=== PATIENT | male | born 1935 | race Caucasian/White ===

== ENCOUNTER 2017-03-18 18:42 | Inpatient (IN) | payer MEDICARE, OTHER ==
[~2017-03-18] VITALS: Ht 167.6 cm; Wt 81.6 kg
[~2017-03-18 18:42] MED LIST: ADOVART PO; ARFO15VI2 NEB; DONE5TAB33 PO; LEVO125T8 PO; LEVO25TA7 PO; TAMS-11 PO
[2017-03-18 19:30] VITALS: BP 115/46
[2017-03-18 20:34] VITALS: BP 115/46
[2017-03-18] MEDS: FUROSEMIDE 40MG/4ML VIAL IVP SCH (21:30)
[2017-03-18 21:38] LABS: BASOPHILS % 0.6 % (0.0-2.0); EOSINOPHILS % 1.4 % (0.0-5.0); HEMATOCRIT. 32.6 % (42.0-52.0); HEMOGLOBIN. 10.9 g/dL (14.0-18.0); LYMPHOCYTES % 11.2 % (20.0-50.0); MEAN CORPUSCULAR HEMOGLOBIN 33.5 pg (28.0-32.0); MEAN CORPUSCULAR VOLUME 100.2 fL (80.0-94.0); MONOCYTES % 13.2 % (2.0-8.0); NEUTROPHILS % 73.6 % (40.0-76.0); PLATELET 106 x1000/uL (130-400); RED BLOOD CELL COUNT 3.25 mill/uL (4.7-6.1); RED CELL DISTRIBUTION WIDTH 14.7 % (11.6-14.6)
[2017-03-18 21:40] LABS: CARBON DIOXIDE 37 mEq/L (21-32); CHLORIDE 102 mEq/L (98-107)
[2017-03-18] MEDS ORDERED: APIX2.5T PO (21:58)
[2017-03-18] MEDS ORDERED: POTA-9 PO (21:58)
[2017-03-18] MEDS ORDERED: CARV6.2548 PO (21:58)
[2017-03-18] MEDS ORDERED: FURO-151 PO (21:58)
[2017-03-18] MEDS ORDERED: SACU1TAB7 PO (22:25)
[2017-03-18] MEDS ORDERED: SACUBITRIL PO SCH (22:30)
[2017-03-18] MEDS ORDERED: VALSARTAN PO SCH (22:30)
[2017-03-18] MEDS ORDERED: [UNRECOGNIZED DRUG - OTHER] PO SCH (22:30)
[2017-03-18] MEDS ORDERED: APIXABAN 2.5 MG TABLET PO SCH (22:35)
[2017-03-19] VITALS (7 sets, daily range): BP systolic 98–166; BP diastolic 52–61
[2017-03-19] MEDS ORDERED: METOLAZONE 10MG TABLET PO NR (08:15)
[2017-03-19] MEDS: IPRATROPIUM/ALBUTEROL 0.5-3(2.5)MG/3ML NEB HHN SCH ×5 (08:59→21:10)
[2017-03-19] MEDS ORDERED: CARVEDILOL 6.25 MG TABLET PO SCH (09:00)
[2017-03-19] MEDS ORDERED: APIXABAN 2.5 MG TABLET PO SCH (09:00)
[2017-03-19 09:42] LABS: BASOPHILS % 0.8 % (0.0-2.0); EOSINOPHILS % 1.2 % (0.0-5.0); HEMATOCRIT. 32.5 % (42.0-52.0); HEMOGLOBIN. 10.5 g/dL (14.0-18.0); LYMPHOCYTES % 10.2 % (20.0-50.0); MEAN CORPUSCULAR VOLUME 99.3 fL (80.0-94.0); MEAN PLATELET VOLUME 8.5 fl (7.4-10.4); MONOCYTES % 13.1 % (2.0-8.0); NEUTROPHILS % 74.7 % (40.0-76.0); PLATELET 107 x1000/uL (130-400); RED BLOOD CELL COUNT 3.27 mill/uL (4.7-6.1); RED CELL DISTRIBUTION WIDTH 14.5 % (11.6-14.6)
[2017-03-19 10:06] LABS: INR 1.4; PROTHROMBIN TIME 14.4 sec (9.4-11.6)
[2017-03-19 10:41] LABS: CARBON DIOXIDE 38 mEq/L (21-32); CHLORIDE 98 mEq/L (98-107); HDL CHOLESTEROL 31 mg/dL (40-59); LDL CHOLESTEROL 49 mg/dL (5-100); PHOSPHORUS 3.4 mg/dL (2.5-4.9); TOTAL IRON BINDING CAPACITY 252 ug/dL (250-450)
[2017-03-19 10:54] LABS: VITAMIN B12 SERUM 589 pg/mL (211-911)
[2017-03-19] MEDS: DONEPEZIL HCL 10MG TABLET PO SCH (11:56)
[2017-03-19] MEDS: DUTASTERIDE 0.5MG CAPSULE PO SCH (11:56)
[2017-03-19] MEDS: LEVOTHYROXINE SODIUM 88MCG TABLET PO SCH (11:56)
[2017-03-19] MEDS: TAMSULOSIN HCL 0.4MG SR CAPSULE PO SCH ×2 (11:58→17:58)
[2017-03-19] MEDS: FUROSEMIDE 40MG/4ML VIAL IVP SCH ×2 (11:58→20:52)
[2017-03-19] MEDS: ENTRESTO PO SCH ×2 (11:58→20:52)
[2017-03-19] MEDS: CARVEDILOL 3.125 MG TABLET PO SCH (20:52)
[2017-03-20] MEDS: CARVEDILOL 3.125 MG TABLET PO SCH ×3 (00:06→20:59)
[2017-03-20 00:57] LABS: CLARITY URINE CLEAR (CLEAR); COLOR URINE YELLOW (YELLOW); GLUCOSE URINE NEGATIVE (NEGATIVE); KETONES URINE NEGATIVE (NEGATIVE); LEUKOCYTE ESTERASE URINE NEGATIVE (NEGATIVE); NITRITE URINE NEGATIVE (NEGATIVE); OCCULT BLOOD URINE NEGATIVE (NEGATIVE); PH URINE 5.5 (4.5-8.0); PROTEIN URINE NEGATIVE (NEGATIVE); SPECIFIC GRAVITY URINE 1.011 (1.005-1.030); UROBILINOGEN URINE 0.2 E.U./dL (0.2-1.0)
[2017-03-20 04:00] VITALS: BP 104/58
[2017-03-20 08:00] VITALS: BP 113/48
[2017-03-20] MEDS: IPRATROPIUM/ALBUTEROL 0.5-3(2.5)MG/3ML NEB HHN SCH ×2 (08:14→20:44)
[2017-03-20] MEDS: TAMSULOSIN HCL 0.4MG SR CAPSULE PO SCH ×2 (08:59→18:16)
[2017-03-20] MEDS: LEVOTHYROXINE SODIUM 88MCG TABLET PO SCH (08:59)
[2017-03-20] MEDS: DONEPEZIL HCL 10MG TABLET PO SCH (08:59)
[2017-03-20] MEDS: DUTASTERIDE 0.5MG CAPSULE PO SCH (08:59)
[2017-03-20] MEDS: FUROSEMIDE 40MG/4ML VIAL IVP SCH ×2 (09:00→20:59)
[2017-03-20] MEDS: ENTRESTO PO SCH ×2 (09:00→20:59)
[2017-03-20 09:16] LABS: BASOPHILS % 0.9 % (0.0-2.0); EOSINOPHILS % 3.1 % (0.0-5.0); HEMATOCRIT. 30.8 % (42.0-52.0); HEMOGLOBIN. 10.3 g/dL (14.0-18.0); LYMPHOCYTES % 12.4 % (20.0-50.0); MEAN CORPUSCULAR HEMOGLOBIN 33.1 pg (28.0-32.0); MEAN PLATELET VOLUME 9.3 fl (7.4-10.4); MONOCYTES % 13.5 % (2.0-8.0); NEUTROPHILS % 70.1 % (40.0-76.0); PLATELET 93 x1000/uL (130-400); RED BLOOD CELL COUNT 3.11 mill/uL (4.7-6.1); RED CELL DISTRIBUTION WIDTH 14.4 % (11.6-14.6)
[2017-03-20 09:49] LABS: CARBON DIOXIDE 38 mEq/L (21-32); CHLORIDE 97 mEq/L (98-107); TROPONIN I 0.08 ng/mL (0.00-0.04)
[2017-03-20] MEDS ORDERED: SODIUM BICARBONATE 4% (2.4MEQ) 5ML VIAL IV ONE (10:48)
[2017-03-20 12:00] VITALS: BP 108/43
[2017-03-20 16:00] VITALS: BP 94/40
[2017-03-20 20:00] VITALS: BP 107/49
[2017-03-21] VITALS: BP 95/47
[2017-03-21 04:00] VITALS: BP 104/71
[2017-03-21 06:56] LABS: CHLORIDE 96 mEq/L (98-107)
[2017-03-21 07:30] LABS: BASOPHILS % 0.9 % (0.0-2.0); HEMOGLOBIN. 10.6 g/dL (14.0-18.0); MEAN CORPUSCULAR HEMOGLOBIN 33.7 pg (28.0-32.0); MEAN CORPUSCULAR VOLUME 98.7 fL (80.0-94.0); MEAN PLATELET VOLUME 9.4 fl (7.4-10.4); MONOCYTES % 13.7 % (2.0-8.0); NEUTROPHILS % 68.4 % (40.0-76.0); PLATELET 98 x1000/uL (130-400); RED BLOOD CELL COUNT 3.14 mill/uL (4.7-6.1)
[2017-03-21 07:57] LABS: CARBON DIOXIDE 40 mEq/L (21-32)
[2017-03-21] MEDS: DONEPEZIL HCL 10MG TABLET PO SCH (08:25)
[2017-03-21] MEDS: CARVEDILOL 3.125 MG TABLET PO SCH (08:27)
[2017-03-21] MEDS: DUTASTERIDE 0.5MG CAPSULE PO SCH (08:28)
[2017-03-21] MEDS: LEVOTHYROXINE SODIUM 88MCG TABLET PO SCH (08:28)
[2017-03-21] MEDS: FUROSEMIDE 40MG/4ML VIAL IVP SCH (08:30)
[2017-03-21] MEDS: TAMSULOSIN HCL 0.4MG SR CAPSULE PO SCH (08:30)
[2017-03-21] MEDS: ENTRESTO PO SCH (08:30)
[2017-03-21] MEDS: IPRATROPIUM/ALBUTEROL 0.5-3(2.5)MG/3ML NEB HHN SCH ×2 (10:03→13:09)
[2017-03-21 12:00] VITALS: BP 118/85
[2017-03-21 13:58] VITALS: BP 112/42
[2017-03-21 14:00] VITALS: BP 112/42
== END 2017-03-21 14:34 | disposition home or self-care (01) | DRG 291 ==
LOC: 7WST 18:42
PROVIDERS: ADMIT Internal Medicine Geriatric Medicine; ATTEND Internal Medicine Geriatric Medicine
PROC: 0W9G3ZZ Drainage of Peritoneal Cavity, Percutaneous Approach (ICD-10-PCS; principal; 2017-03-20)
DX: I11.0 Hypertensive heart disease with heart failure (principal); J96.20 Acute and chronic respiratory failure, unspecified whether with hypoxia or hypercapnia; N17.0 Acute kidney failure with tubular necrosis; D69.6 Thrombocytopenia, unspecified; E87.5 Hyperkalemia; I27.20 Pulmonary hypertension, unspecified; E44.1 Mild protein-calorie malnutrition; R18.8 Other ascites; I42.0 Dilated cardiomyopathy; I48.0 Paroxysmal atrial fibrillation; I50.23 Acute on chronic systolic (congestive) heart failure; R00.1 Bradycardia, unspecified; J40 Bronchitis, not specified as acute or chronic; F03.90 Unspecified dementia, unspecified severity, without behavioral disturbance, psychotic disturbance, mood disturbance, and anxiety; I50.813 Acute on chronic right heart failure; D53.9 Nutritional anemia, unspecified; E03.9 Hypothyroidism, unspecified; E11.9 Type 2 diabetes mellitus without complications; B19.20 Unspecified viral hepatitis C without hepatic coma; I25.10 Atherosclerotic heart disease of native coronary artery without angina pectoris; E78.5 Hyperlipidemia, unspecified; I35.0 Nonrheumatic aortic (valve) stenosis; J30.9 Allergic rhinitis, unspecified; K74.60 Unspecified cirrhosis of liver; J44.9 Chronic obstructive pulmonary disease, unspecified; N40.0 Benign prostatic hyperplasia without lower urinary tract symptoms; Z86.711 Personal history of pulmonary embolism; Z86.718 Personal history of other venous thrombosis and embolism; Z87.891 Personal history of nicotine dependence; Z68.29 Body mass index [BMI] 29.0-29.9, adult; Z79.01 Long term (current) use of anticoagulants; Z99.81 Dependence on supplemental oxygen; Z88.8 Allergy status to other drugs, medicaments and biological substances
CPT/HCPCS: 36415; 49083; 71010; 76700; 80048; 80053; 80061; 81003; 82607; 82945; 83036; 83540; 83550; 83615; 83880; 84100; 84157; 84207; 84425; 84443; 84484; 85025; 85610; 87070; 87086; 87205; 89050; 93005; 93306; 94640; 97162; J1940; J3490; J7620

== ENCOUNTER → 2018-02-02 | Day surgery (SDC) | payer MEDICARE, OTHER ==
[~2018-02-02] MED LIST changes: +APIX2.5T PO; +CARV6.2548 PO; +FURO-151 PO; +LIDOCAINE HCL 1% 20ML VIAL (Pyxis) INJ ONE; +POTA-9 PO; +SACU1TAB7 PO; +SODIUM BICARBONATE 4% (2.4MEQ) 5ML VIAL IV ONE
== END | disposition home or self-care (01) ==
LOC: RAD 11:42
PROVIDERS: ATTEND Specialist
DX: R18.8 Other ascites (principal); J44.9 Chronic obstructive pulmonary disease, unspecified; E78.5 Hyperlipidemia, unspecified; I50.9 Heart failure, unspecified; E03.9 Hypothyroidism, unspecified; Z79.01 Long term (current) use of anticoagulants; Z98.890 Other specified postprocedural states; Z87.891 Personal history of nicotine dependence; Z79.899 Other long term (current) drug therapy
CPT/HCPCS: 49083; J3490

== ENCOUNTER 2018-04-19 13:41 | Inpatient (IN) | payer MEDICARE, OTHER ==
[~2018-04-19] VITALS: Ht 309.9 cm; Wt 82.6 kg
[~2018-04-19 13:41] MED LIST changes: -LIDOCAINE HCL 1% 20ML VIAL (Pyxis) INJ ONE; +SACU1TAB MT; -SODIUM BICARBONATE 4% (2.4MEQ) 5ML VIAL IV ONE
[2018-04-19 15:16] LABS: BASOPHILS % 1.2 % (0.0-2.0); EOSINOPHILS % 2.3 % (0.0-5.0); HEMATOCRIT. 33.1 % (42.0-52.0); HEMOGLOBIN. 10.7 g/dL (14.0-18.0); LYMPHOCYTES % 7.9 % (20.0-50.0); MEAN CORPUSCULAR VOLUME 95.6 fL (80.0-94.0); MEAN PLATELET VOLUME 7.7 fl (7.4-10.4); MONOCYTES % 12.1 % (2.0-8.0); NEUTROPHILS % 76.5 % (40.0-76.0); PLATELET 149 x1000/uL (130-400); RED BLOOD CELL COUNT 3.46 mill/uL (4.7-6.1); RED CELL DISTRIBUTION WIDTH 17.4 % (11.6-14.6)
[2018-04-19 15:21] LABS: INR 1.3; PROTHROMBIN TIME 12.6 sec (9.1-11.1)
[2018-04-19 15:22] LABS: CHLORIDE 96 mEq/L (98-107)
[2018-04-19] MEDS ORDERED: ONDANSETRON HCL 4MG/2ML INJ IV PRN (17:30)
[2018-04-19] MEDS ORDERED: ENOXAPARIN 40MG/0.4ML SYR SUBCUT SCH (17:30)
[2018-04-19] MEDS ORDERED: ACETAMINOPHEN 650MG/20.3ML UDC GT PRN (17:30)
[2018-04-19] MEDS ORDERED: LORAZEPAM 0.5MG TABLET PO PRN (17:30)
[2018-04-19] MEDS ORDERED: GUAIFENESIN 200MG/10ML SUGAR FREE UDC PO PRN (17:30)
[2018-04-19] MEDS: IPRATROPIUM/ALBUTEROL 0.5-3(2.5)MG/3ML NEB HHN SCH ×2 (18:10→20:05)
[2018-04-19] MEDS ORDERED: TAMS-11 PO (18:47)
[2018-04-19] MEDS ORDERED: POTA8TAB4 PO (18:48)
[2018-04-19] MEDS ORDERED: LEVO50TA PO (18:49)
[2018-04-19] MEDS ORDERED: DUTA0.5C15 PO (18:50)
[2018-04-19] MEDS ORDERED: CARV3.1242 PO (18:51)
[2018-04-19 22:00] VITALS: BP 147/83
[2018-04-19] MEDS ORDERED: FUROSEMIDE 40MG/4ML VIAL IVP SCH (23:12)
[2018-04-19] MEDS ORDERED: POTASSIUM CHLORIDE 10MEQ TABLET SR PO SCH (23:17)
[2018-04-19] MEDS ORDERED: LEVOTHYROXINE SODIUM 88MCG TABLET PO SCH (23:19)
[2018-04-20] MEDS: PANTOPRAZOLE 40MG DR TABLET PO SCH ×3 (00:06→20:40)
[2018-04-20 00:10] LABS: CREATINE KINASE MB FRACTION 2.9 ng/mL (0.5-3.6)
[2018-04-20 00:41] VITALS: BP 134/59
[2018-04-20] MEDS: IPRATROPIUM/ALBUTEROL 0.5-3(2.5)MG/3ML NEB HHN SCH ×6 (00:44→21:53)
[2018-04-20 04:00] VITALS: BP 114/66
[2018-04-20] MEDS: FUROSEMIDE 40MG/4ML VIAL IVP SCH ×2 (06:49→19:42)
[2018-04-20] MEDS ORDERED: PANTOPRAZOLE 40MG DR TABLET PO SCH (07:20)
[2018-04-20 08:00] VITALS: BP 104/56
[2018-04-20] MEDS ORDERED: LEVOTHYROXINE SODIUM 25MCG TABLET PO SCH (08:45)
[2018-04-20] MEDS: ENOXAPARIN 40MG/0.4ML SYR SUBCUT SCH (09:00)
[2018-04-20] MEDS ORDERED: INFLUENZA VIRUS VACCINE(AFLURIA) 0.5ML SYR IM ONE (09:00)
[2018-04-20] MEDS ORDERED: PNEUMOCOCCAL 23-VAL P-SAC VAC 0.5 ML IM ONE (09:00)
[2018-04-20 09:24] LABS: BASOPHILS % 0.7 % (0.0-2.0); EOSINOPHILS % 0.5 % (0.0-5.0); HEMATOCRIT. 30.1 % (42.0-52.0); LYMPHOCYTES % 7.3 % (20.0-50.0); MEAN CORPUSCULAR HEMOGLOBIN 31.4 pg (28.0-32.0); MEAN CORPUSCULAR VOLUME 95.1 fL (80.0-94.0); MEAN PLATELET VOLUME 7.1 fl (7.4-10.4); MONOCYTES % 11.6 % (2.0-8.0); NEUTROPHILS % 79.9 % (40.0-76.0); PLATELET 137 x1000/uL (130-400); RED BLOOD CELL COUNT 3.17 mill/uL (4.7-6.1); RED CELL DISTRIBUTION WIDTH 17.2 % (11.6-14.6)
[2018-04-20 09:36] LABS: CHLORIDE 97 mEq/L (98-107)
[2018-04-20 09:49] LABS: CREATINE KINASE MB FRACTION 2.1 ng/mL (0.5-3.6)
[2018-04-20 09:54] LABS: BG BASE EXCESS 11.6 mmol/L (-2.0-2.0); BG CARBOXYHEMOGLOBIN 0.6 % (0.5-1.5); BG DEOXYHEMOGLOBIN 1.9 % (0.0-5.0); BG FRACTION INSPIRED OXYGEN 28; BG HCO3 ACT 38.8 mmol/L (22.0-26.0); BG METHEMOGLOBIN 0.3 % (0.0-1.5); BG OXYGEN SATURATION 98.1 % (92.0-98.5); BG OXYHEMOGLOBIN 97.2 % (94.0-97.0); BG PCO2 66.2 mmHg (35.0-45.0); BG PH 7.386 (7.350-7.450); BG PO2 109.6 mmHg (75.0-100.0); BG SAMPLE SITE LEFT BRACHIAL; BG TOTAL HEMOGLOBIN 10.8 g/dL (12.0-18.0); BG VENT MODE NASAL CANNULA
[2018-04-20] MEDS: POTASSIUM CHLORIDE 20MEQ TABLET SR PO SCH (10:16)
[2018-04-20] MEDS: DONEPEZIL HCL 10MG TABLET PO SCH (10:18)
[2018-04-20] MEDS ORDERED: SODIUM BICARBONATE 4% (2.4MEQ) 5ML VIAL IV ONE (11:29)
[2018-04-20] MEDS ORDERED: LIDOCAINE HCL 1% 20ML VIAL (Pyxis) INJ ONE (11:29)
[2018-04-20 12:00] VITALS: BP 110/60
[2018-04-20 16:00] VITALS: BP 135/57
[2018-04-20 20:51] VITALS: BP 106/63
[2018-04-21 00:31] VITALS: BP 118/65
[2018-04-21] MEDS: IPRATROPIUM/ALBUTEROL 0.5-3(2.5)MG/3ML NEB HHN SCH ×2 (01:31→05:21)
[2018-04-21 04:00] VITALS: BP 110/54
[2018-04-21] MEDS: FUROSEMIDE 40MG/4ML VIAL IVP SCH (05:16)
[2018-04-21] MEDS: PANTOPRAZOLE 40MG DR TABLET PO SCH (06:31)
[2018-04-21] MEDS ORDERED: LEVOTHYROXINE SODIUM 100MCG TABLET PO SCH (07:20)
[2018-04-21 07:45] LABS: BASOPHILS % 0.4 % (0.0-2.0); EOSINOPHILS % 0.6 % (0.0-5.0); HEMATOCRIT. 33.4 % (42.0-52.0); HEMOGLOBIN. 10.7 g/dL (14.0-18.0); LYMPHOCYTES % 8.5 % (20.0-50.0); MEAN CORPUSCULAR HEMOGLOBIN 30.7 pg (28.0-32.0); MEAN CORPUSCULAR VOLUME 95.8 fL (80.0-94.0); MEAN PLATELET VOLUME 8.2 fl (7.4-10.4); MONOCYTES % 12.4 % (2.0-8.0); NEUTROPHILS % 78.1 % (40.0-76.0); PLATELET 150 x1000/uL (130-400); RED BLOOD CELL COUNT 3.48 mill/uL (4.7-6.1)
[2018-04-21] MEDS ORDERED: PANTOPRAZOLE 40MG DR TABLET PO NR (08:45)
[2018-04-21] MEDS: ENOXAPARIN 40MG/0.4ML SYR SUBCUT SCH (09:00)
[2018-04-21] MEDS: POTASSIUM CHLORIDE 20MEQ TABLET SR PO SCH (09:00)
[2018-04-21] MEDS: DONEPEZIL HCL 10MG TABLET PO SCH (09:00)
[2018-04-21] MEDS ORDERED: LEVOTHYROXINE SODIUM 112MCG TABLET PO SCH (09:00)
[2018-04-21 11:18] VITALS: BP 103/59
[2018-04-22] MEDS ORDERED: PANTOPRAZOLE 40MG DR TABLET PO SCH (07:20)
== END 2018-04-21 12:42 | disposition home or self-care (01) | DRG 292 ==
LOC: ER 16:39 → 6WST 16:42 → EDBEDREQ 16:46 → EDBEDREQTM 16:46 → ENRESERV 21:20
PROVIDERS: ADMIT Internal Medicine Geriatric Medicine; ATTEND Internal Medicine Geriatric Medicine
PROC: 0W9930Z Drainage of Right Pleural Cavity with Drainage Device, Percutaneous Approach (ICD-10-PCS; principal; 2018-04-20)
PROC: 0W9G3ZZ Drainage of Peritoneal Cavity, Percutaneous Approach (ICD-10-PCS; 2018-04-20)
PROC: 0W993ZZ Drainage of Right Pleural Cavity, Percutaneous Approach (ICD-10-PCS; 2018-04-21)
DX: I11.0 Hypertensive heart disease with heart failure (principal); R18.8 Other ascites; J96.10 Chronic respiratory failure, unspecified whether with hypoxia or hypercapnia; J91.8 Pleural effusion in other conditions classified elsewhere; I50.23 Acute on chronic systolic (congestive) heart failure; D64.9 Anemia, unspecified; E03.9 Hypothyroidism, unspecified; F02.80 Dementia in other diseases classified elsewhere, unspecified severity, without behavioral disturbance, psychotic disturbance, mood disturbance, and anxiety; G30.9 Alzheimer's disease, unspecified; H35.30 Unspecified macular degeneration; J44.9 Chronic obstructive pulmonary disease, unspecified; K74.60 Unspecified cirrhosis of liver; N40.0 Benign prostatic hyperplasia without lower urinary tract symptoms; B19.20 Unspecified viral hepatitis C without hepatic coma; L89.892 Pressure ulcer of other site, stage 2; L03.039 Cellulitis of unspecified toe; L60.0 Ingrowing nail; Z88.8 Allergy status to other drugs, medicaments and biological substances; Z86.711 Personal history of pulmonary embolism; Z87.891 Personal history of nicotine dependence; Z99.81 Dependence on supplemental oxygen
CPT/HCPCS: 32555; 36415; 36600; 49083; 71045; 80048; 82375; 82553; 82805; 83880; 84439; 84443; 84484; 93005; 93970; 94640; 97162; 97530; 99285; J1650; J1940; J3490; J7620

== ENCOUNTER → 2018-05-07 | Day surgery (SDC) | payer MEDICARE, OTHER ==
[~2018-05-07] MED LIST changes: +CARV3.1242 PO; +DUTA0.5C15 PO; +LEVO50TA PO; +LIDOCAINE HCL 1% 20ML VIAL (Pyxis) INJ ONE; +POTA8TAB4 PO; +SODIUM BICARBONATE 4% (2.4MEQ) 5ML VIAL IV ONE
== END | disposition home or self-care (01) ==
LOC: RAD 12:44
PROVIDERS: ATTEND Specialist
DX: R18.8 Other ascites (principal)
CPT/HCPCS: 49083; J3490

== ENCOUNTER → 2018-06-07 | Day surgery (SDC) | payer MEDICARE, OTHER ==
[~2018-06-07] MED LIST changes: -LIDOCAINE HCL 1% 20ML VIAL (Pyxis) INJ ONE
== END | disposition home or self-care (01) ==
LOC: RAD 12:45
PROVIDERS: ATTEND Specialist
DX: R18.8 Other ascites (principal); B19.20 Unspecified viral hepatitis C without hepatic coma; J90 Pleural effusion, not elsewhere classified; J44.9 Chronic obstructive pulmonary disease, unspecified; F03.90 Unspecified dementia, unspecified severity, without behavioral disturbance, psychotic disturbance, mood disturbance, and anxiety; I42.9 Cardiomyopathy, unspecified; I10 Essential (primary) hypertension; E11.9 Type 2 diabetes mellitus without complications; I35.0 Nonrheumatic aortic (valve) stenosis
CPT/HCPCS: 49083; J3490

== ENCOUNTER 2018-06-27 15:26 | Inpatient (IN) | payer MEDICARE, OTHER ==
[~2018-06-27] VITALS: Ht 162.6 cm; Wt 69.9 kg
[~2018-06-27 15:26] MED LIST changes: -SODIUM BICARBONATE 4% (2.4MEQ) 5ML VIAL IV ONE
[2018-06-27 17:01] LABS: BASOPHILS % 0.7 % (0.0-2.0); HEMOGLOBIN. 9.5 g/dL (14.0-18.0); LYMPHOCYTES % 11.4 % (20.0-50.0); MEAN CORPUSCULAR HEMOGLOBIN 30.4 pg (28.0-32.0); MEAN CORPUSCULAR VOLUME 95.7 fL (80.0-94.0); MEAN PLATELET VOLUME 7.7 fl (7.4-10.4); MONOCYTES % 11.6 % (2.0-8.0); NEUTROPHILS % 73.3 % (40.0-76.0); PLATELET 189 x1000/uL (130-400); RED BLOOD CELL COUNT 3.13 mill/uL (4.7-6.1); RED CELL DISTRIBUTION WIDTH 15.6 % (11.6-14.6)
[2018-06-27 17:05] LABS: INR 1.2; PROTHROMBIN TIME 12.2 sec (9.1-11.1)
[2018-06-27 17:14] LABS: CHLORIDE 96 mEq/L (98-107)
[2018-06-27] MEDS ORDERED: VANCOMYCIN 1 G PREMIX 200 ML IV ONE (18:00)
[2018-06-27] MEDS ORDERED: PIPERACILLIN/TAZ 3.375G PREMIX 50 ML IV ONE (18:00)
[2018-06-27 18:16] LABS: BG BASE EXCESS 10.9 mmol/L (-2.0-2.0); BG CARBOXYHEMOGLOBIN 0.2 % (0.5-1.5); BG DEOXYHEMOGLOBIN 2.9 % (0.0-5.0); BG FRACTION INSPIRED OXYGEN 32; BG METHEMOGLOBIN 0.2 % (0.0-1.5); BG OXYGEN SATURATION 97.1 % (92.0-98.5); BG OXYHEMOGLOBIN 96.7 % (94.0-97.0); BG PCO2 84.2 mmHg (35.0-45.0); BG PH 7.295 (7.350-7.450); BG PO2 102.9 mmHg (75.0-100.0); BG SAMPLE SITE LEFT BRACHIAL; BG TOTAL HEMOGLOBIN 10.7 g/dL (12.0-18.0); BG VENT MODE NASAL CANNULA
[2018-06-27] MEDS ORDERED: FUROSEMIDE 40MG/4ML VIAL IVP ONE (19:45)
[2018-06-27] MEDS ORDERED: MAGNESIUM/ALUMINUM HYDROXIDE/SIMETHICONE 30ML UDC PO PRN (20:30)
[2018-06-27] MEDS ORDERED: ONDANSETRON HCL 4MG/2ML INJ IV PRN (20:30)
[2018-06-27] MEDS ORDERED: GUAIFENESIN 200MG/10ML SUGAR FREE UDC PO PRN (20:30)
[2018-06-27] MEDS ORDERED: CLONIDINE 0.1MG TABLET PO PRN (20:30)
[2018-06-27] MEDS ORDERED: ACETAMINOPHEN 325MG TABLET PO PRN (20:30)
[2018-06-27] MEDS ORDERED: FAMOTIDINE 20MG/2ML VIAL IV SCH (21:00)
[2018-06-27 22:11] LABS: BG BASE EXCESS 12.3 mmol/L (-2.0-2.0); BG BILEVEL POS AIRWAY PRESSURE 15/5; BG CARBOXYHEMOGLOBIN 0.1 % (0.5-1.5); BG DEOXYHEMOGLOBIN 0.9 % (0.0-5.0); BG FRACTION INSPIRED OXYGEN 50; BG METHEMOGLOBIN 0.1 % (0.0-1.5); BG OXYGEN SATURATION 99.1 % (92.0-98.5); BG OXYHEMOGLOBIN 98.9 % (94.0-97.0); BG PCO2 71.5 mmHg (35.0-45.0); BG PH 7.366 (7.350-7.450); BG PO2 189.5 mmHg (75.0-100.0); BG SAMPLE SITE RIGHT BRACHIAL; BG TOTAL HEMOGLOBIN 10.5 g/dL (12.0-18.0); BG VENT MODE MASK - BIPAP
[2018-06-27 22:28] LABS: CLARITY URINE CLEAR (CLEAR); COLOR URINE DARK YELLOW (YELLOW); KETONES URINE NEGATIVE (NEGATIVE); LEUKOCYTE ESTERASE URINE NEGATIVE (NEGATIVE); NITRITE URINE NEGATIVE (NEGATIVE); OCCULT BLOOD URINE 1+ (NEGATIVE); PH URINE 5.5 (4.5-8.0); PROTEIN URINE TRACE (NEGATIVE); SPECIFIC GRAVITY URINE 1.018 (1.005-1.030)
[2018-06-28 04:54] LABS: HEMATOCRIT. 29.2 % (42.0-52.0); HEMOGLOBIN. 9.4 g/dL (14.0-18.0); MEAN CORPUSCULAR HEMOGLOBIN 30.8 pg (28.0-32.0); MEAN CORPUSCULAR VOLUME 95.4 fL (80.0-94.0); MEAN PLATELET VOLUME 7.9 fl (7.4-10.4); PLATELET 167 x1000/uL (130-400); RED BLOOD CELL COUNT 3.06 mill/uL (4.7-6.1); RED CELL DISTRIBUTION WIDTH 15.4 % (11.6-14.6)
[2018-06-28 05:00] LABS: CHLORIDE 95 mEq/L (98-107)
[2018-06-28 05:22] LABS: PLATELET ESTIMATE NORMAL
[2018-06-28 07:53] LABS: BG BASE EXCESS 13.2 mmol/L (-2.0-2.0); BG BILEVEL POS AIRWAY PRESSURE 15/5; BG CARBOXYHEMOGLOBIN 0.3 % (0.5-1.5); BG DEOXYHEMOGLOBIN 1.4 % (0.0-5.0); BG HCO3 ACT 41.4 mmol/L (22.0-26.0); BG METHEMOGLOBIN 0.3 % (0.0-1.5); BG OXYGEN SATURATION 98.6 % (92.0-98.5); BG PCO2 77.7 mmHg (35.0-45.0); BG PH 7.344 (7.350-7.450); BG PO2 137.7 mmHg (75.0-100.0); BG SAMPLE SITE RIGHT BRACHIAL; BG TOTAL HEMOGLOBIN 10.1 g/dL (12.0-18.0); BG VENT MODE MASK - BIPAP; BG VENT RATE 18 set
[2018-06-28] MEDS: IPRATROPIUM/ALBUTEROL 0.5-3(2.5)MG/3ML NEB HHN SCH ×3 (09:07→16:52)
[2018-06-28] MEDS ORDERED: IPRATROPIUM/ALBUTEROL 0.5-3(2.5)MG/3ML NEB ONE ×3 (12:55→20:09)
[2018-06-28] MEDS ORDERED: SODIUM BICARBONATE 4% (2.4MEQ) 5ML VIAL IV ONE (13:25)
[2018-06-28] MEDS ORDERED: LIDOCAINE HCL 1% 20ML VIAL (Pyxis) INJ ONE (13:25)
[2018-06-28] MEDS ORDERED: PROPOFOL 10MG/ML 100ML 100 ML IV SCH (14:45)
[2018-06-28] MEDS ORDERED: FENTANYL CITRATE/PF 500 MCG in SODIUM CHLORIDE 0.9% 40 ML IV PRN (15:00)
[2018-06-28] MEDS ORDERED: SODIUM CHLORIDE 0.9% 1,000 ML IV ONE (15:00)
[2018-06-28] MEDS ORDERED: ALBUMIN HUMAN 25GM/100ML (25%) IV ONE (15:00)
[2018-06-28] MEDS: MORPHINE (DRIP)100 MG in DEXT 5% WATER 100ML IV PRN (17:45)
[2018-06-28] MEDS ORDERED: FAMOTIDINE 20MG/2ML VIAL IV SCH (21:40)
[2018-06-28] MEDS ORDERED: LORAZEPAM 2MG/ML CPJ IV PRN (23:30)
[2018-06-29] VITALS (7 sets, daily range): BP systolic 49–108; BP diastolic 23–58
[2018-06-29] MEDS ORDERED: IPRATROPIUM/ALBUTEROL 0.5-3(2.5)MG/3ML NEB HHN SCH (04:00)
[2018-06-29 06:04] LABS: CHLORIDE 98 mEq/L (98-107); HEMATOCRIT. 32.2 % (42.0-52.0); HEMOGLOBIN. 10.3 g/dL (14.0-18.0); MEAN CORPUSCULAR HEMOGLOBIN 30.9 pg (28.0-32.0); MEAN PLATELET VOLUME 8.1 fl (7.4-10.4); PLATELET 225 x1000/uL (130-400); RED BLOOD CELL COUNT 3.32 mill/uL (4.7-6.1); RED CELL DISTRIBUTION WIDTH 16.1 % (11.6-14.6)
[2018-06-29] MEDS ORDERED: PANTOPRAZOLE SODIUM 40 MG/VIAL IV SCH (09:00)
[2018-06-29] MEDS ORDERED: BUDESONIDE 0.25MG/2ML NEB HHN SCH (09:00)
[2018-06-29] MEDS: MORPHINE (DRIP)100 MG in DEXT 5% WATER 100ML IV PRN (09:03)
[2018-06-29] MEDS ORDERED: LORAZEPAM 2MG/ML CPJ IV PRN ×2 (11:30→19:00)
[2018-06-29 11:46] LABS: PLATELET ESTIMATE NORMAL
[2018-06-29] MEDS ORDERED: MONTELUKAST SODIUM 10MG TABLET PO SCH (17:00)
== END 2018-06-29 20:23 | disposition expired | DRG 208 ==
LOC: ER 15:26 → EDBEDREQ 18:41 → EDBEDREQSVC 18:41 → ENRESERV 06-28 23:42 → 6EST 06-29 00:51
PROVIDERS: ADMIT Internal Medicine Geriatric Medicine; ATTEND Internal Medicine Geriatric Medicine
PROC: 5A09357 Assistance with Respiratory Ventilation, Less than 24 Consecutive Hours, Continuous Positive Airway Pressure (ICD-10-PCS; principal; 2018-06-27)
PROC: 5A1935Z Respiratory Ventilation, Less than 24 Consecutive Hours (ICD-10-PCS; 2018-06-28)
PROC: 0BH17EZ Insertion of Endotracheal Airway into Trachea, Via Natural or Artificial Opening (ICD-10-PCS; 2018-06-28)
PROC: 0W9G3ZZ Drainage of Peritoneal Cavity, Percutaneous Approach (ICD-10-PCS; 2018-06-28)
DX: J96.21 Acute and chronic respiratory failure with hypoxia (principal); E43 Unspecified severe protein-calorie malnutrition; I42.9 Cardiomyopathy, unspecified; I50.42 Chronic combined systolic (congestive) and diastolic (congestive) heart failure; J44.1 Chronic obstructive pulmonary disease with (acute) exacerbation; R18.8 Other ascites; D63.8 Anemia in other chronic diseases classified elsewhere; Z66 Do not resuscitate; E03.9 Hypothyroidism, unspecified; E11.69 Type 2 diabetes mellitus with other specified complication; F02.80 Dementia in other diseases classified elsewhere, unspecified severity, without behavioral disturbance, psychotic disturbance, mood disturbance, and anxiety; G30.9 Alzheimer's disease, unspecified; I11.0 Hypertensive heart disease with heart failure; I27.20 Pulmonary hypertension, unspecified; I35.0 Nonrheumatic aortic (valve) stenosis; I48.0 Paroxysmal atrial fibrillation; N40.0 Benign prostatic hyperplasia without lower urinary tract symptoms; Z51.5 Encounter for palliative care; Z86.711 Personal history of pulmonary embolism; Z86.718 Personal history of other venous thrombosis and embolism; Z87.01 Personal history of pneumonia (recurrent); Z95.828 Presence of other vascular implants and grafts; Z99.2 Dependence on renal dialysis; Z99.81 Dependence on supplemental oxygen; Z88.8 Allergy status to other drugs, medicaments and biological substances; Z79.2 Long term (current) use of antibiotics; Z79.899 Other long term (current) drug therapy; Z68.26 Body mass index [BMI] 26.0-26.9, adult
CPT/HCPCS: 36415; 36600; 49083; 71045; 82375; 82805; 83735; 83880; 84484; 93005; 93970; 94640; 94660; 99284; J1940; J2060; J2270; J2543; J2704; J3370; J3490; J7030; J7060; J7620; P9047